=== PATIENT | female | born 1990 | race Caucasian/White ===

== ENCOUNTER 2024-03-24 14:45 | Emergency (ER) | payer MEDICAID ==
[~2024-03-24] VITALS: Ht 170.2 cm; Wt 90.7 kg
[2024-03-24 15:01] VITALS: BP_SYST 124; PULSE 91; RESP 18; TEMP 98.8; O2SAT 98
[2024-03-24 15:44] LABS: BILIRUBIN,URINE NEGATIVE (NEGATIVE); BLOOD, URINE 3+ (NEGATIVE); COLOR,URINE YELLOW (YELLOW); GLUCOSE,URINE NEGATIVE (NEGATIVE); KETONES,URINE 1+ (NEGATIVE); LEUKOCYTE ESTERASE ,URINE 2+ (NEGATIVE); NITRITE, URINE POSITIVE (NEGATIVE); PROTEIN URINE 1+ (NEGATIVE); UROBILINOGEN,URINE 0.2 (0.2-1.0)
[2024-03-24 15:48] LABS: CLARITY/URINE HAZY (CLEAR)
[2024-03-24 15:52] LABS: BACTERIA,URINE MODERATE /HPF (None Seen); MUCUS,URINE None Seen /LPF (None Seen); WBC,URINE 50-80 /HPF (0-3)
[2024-03-24 15:53] LABS: BASOPHILS % (AUTO) 0.3 % (0.0-2.0); EOSINOPHILS % (AUTO) 0.1 % (0.0-4.0); HEMATOCRIT 39.8 % (36-48); HEMOGLOBIN 13.2 g/dL (12.0-16.0); LYMPHOCYTES # (AUTO) 1.3 K/uL (1.0-5.5); LYMPHOCYTES % (AUTO) 10.3 % (20.5-51.5); MEAN CORPUSCULAR HEMOGLOBIN 30 pg (27-31); MEAN CORPUSCULAR HGB CONC 33 % (32-36); MEAN CORPUSCULAR VOLUME 91 fL (79.0-98.0); MONOCYTES # (AUTO) 0.8 K/uL (0.0-1.0); MONOCYTES % (AUTO) 6.6 % (1.7-9.3); NEUTROPHILS # (AUTO) 10.1 K/uL (1.8-7.7); NEUTROPHILS % (AUTO) 82.7 % (40.0-70.0); PLATELET COUNT (AUTO) 171 K/uL (130-430); RED BLOOD CELL COUNT(AUTO) 4.36 MIL/uL (4.2-6.2); WHITE BLOOD COUNT (AUTO) 12.2 K/uL (4.8-10.8)
[2024-03-24 16:01] LABS: SERUM HCG (QUALITATIVE) NEGATIVE (NEGATIVE)
[2024-03-24 16:03] LABS: PROTHROMBIN TIME 10.7 SECS (9.5-12.5)
[2024-03-24 16:45] LABS: ALBUMIN 3.9 g/dL (3.4-4.8); BILIRUBIN,DIRECT 0.2 mg/dL (0.0-0.3); CALCIUM 8.9 mg/dL (8.4-11.0); CREATININE 0.79 mg/dL (0.55-1.30); POTASSIUM 4.1 mmol/L (3.5-5.1); TOTAL BILIRUBIN 0.7 mg/dL (0.0-1.0)
[2024-03-24] MEDS ORDERED: IBUP-1969 PO (17:25)
[2024-03-24] MEDS ORDERED: NITR-85 PO (17:25)
[2024-03-24] MEDS: IBUPROFEN 800 MG TABLET PO ONE ×2 (17:43→17:45)
[2024-03-24] MEDS: NITROFURANTOIN MONOHYD/M-CRYST 100 MG CAPSULE (MacroBID) PO ONE (17:43)
[2024-03-24 17:59] VITALS: BP_SYST 140; PULSE 96; RESP 16; TEMP 102; O2SAT 99
== END 2024-03-24 17:59 | disposition home or self-care (01) ==
LOC: SED 14:45
DX: N39.0 Urinary tract infection, site not specified (principal); R10.31 Right lower quadrant pain
CPT/HCPCS: 36415; 80048; 80076; 81000; 81001; 81015; 81025; 82150; 83605; 83690; 84703; 85025; 85610; 85730; 87086; 99284